=== PATIENT | male | born 1955 ===

== ENCOUNTER 2023-10-03 10:48 | Inpatient (IN) | payer OTHER ==
[~2023-10-03] VITALS: Ht 190.5 cm; Wt 110.5 kg
[2023-10-03 12:08] LABS: BASOPHILS % (AUTO) 0.9 % (0.0-2.0); EOSINOPHILS % (AUTO) 1.8 % (1.0-6.0); HEMATOCRIT 38.1 % (41-53); HEMOGLOBIN 12.6 g/dL (13.5-17.5); LYMPHOCYTES # (AUTO) 3.2 K/uL (1.0-4.8); LYMPHOCYTES % (AUTO) 38.9 % (22.0-44.0); MEAN CORPUSCULAR HEMOGLOBIN 25.8 pg (26.0-34.0); MEAN CORPUSCULAR VOLUME 78 fL (80-100); MONOCYTES # (AUTO) 0.9 K/uL (0.1-1.0); MONOCYTES % (AUTO) 10.7 % (2.0-9.0); NEUTROPHILS # (AUTO) 3.9 K/uL (1.8-7.7); NEUTROPHILS % (AUTO) 47.7 % (40.0-70.0); PLATELET COUNT (AUTO) 274 K/uL (150-450); RED BLOOD CELL COUNT(AUTO) 4.88 MIL/uL (4.50-5.90); RED CELL DISTRIBUTION WIDTH 18.3 % (11.5-14.5); WHITE BLOOD COUNT (AUTO) 8.1 K/uL (4.5-11.0)
[2023-10-03 12:18] LABS: ALBUMIN 3.3 g/dL (3.4-5.0); BILIRUBIN,TOTAL 0.9 mg/dL (0.1-1.0); CALCIUM, TOTAL 9.4 mg/dL (8.8-10.5); CREATININE 2.08 mg/dL (0.60-1.30)
[2023-10-03 12:24] LABS: POTASSIUM 2.2 mmol/L (3.5-5.1); TROPONIN I-HIGH SENSITIVITY 173 ng/L (<76)
[2023-10-03] MEDS ORDERED: ASPIRIN 325 MG TABLET PO ONE (12:45)
[2023-10-03] MEDS ORDERED: POTASSIUM CHL 10 MEQ/WATER 50 ML IV ONE (12:45)
[2023-10-03] MEDS ORDERED: POTASSIUM CHLORIDE 10% 40 MEQ/30 ML LIQUID UDCUP PO ONE ×2 (12:45→13:15)
[2023-10-03 12:53] LABS: COVID AG,FIA SOURCE NASAL SWAB
[2023-10-03 13:16] LABS: SARS-COV2 (COVID) ANTIGEN,FIA Negative (Negative)
[2023-10-03 15:17] LABS: APPEARANCE,URINE CLEAR (CLEAR); BILIRUBIN,URINE NEGATIVE (NEGATIVE); COLOR,URINE YELLOW (YELLOW); GLUCOSE, URINE (UA) NEGATIVE (NEGATIVE); KETONES,URINE NEGATIVE (NEGATIVE); LEUKOCYTE ESTERASE ,URINE SMALL (NEGATIVE); NITRATE,URINE NEGATIVE (NEGATIVE); OCCULT BLOOD,URINE NEGATIVE (NEGATIVE); PH,URINE 6.5 (5.0-8.0); PROTEIN,URINE 30-70 mg/dL (NEGATIVE); SPECIFIC GRAVITIY, URINE 1.013 (1.003-1.030); UROBILINOGEN,URINE <=1.0 mg/dL (<=1.0)
[2023-10-03 15:43] LABS: RBC,URINE None Seen /HPF (0-2)
[2023-10-03 15:44] LABS: BACTERIA,URINE Rare /HPF (None Seen)
[2023-10-03 16:13] VITALS: BP 171/99; PULSE 62; RESP 20; TEMP 98.2
[2023-10-03] MEDS ORDERED: IPRATROPIUM BROMIDE 0.5 MG/2.5 ML NEB SOLUTION NEB PRN (17:15)
[2023-10-03] MEDS ORDERED: ALBUTEROL SULFATE 2.5 MG/0.5 ML NEB SOLUTION NEB PRN (17:15)
[2023-10-03] MEDS ORDERED: ONDANSETRON HCL 4 MG/2 ML VIAL IVP PRN (17:15)
[2023-10-03] MEDS ORDERED: MORPHINE SULFATE 2 MG/ML SYRINGE IVP PRN (17:15)
[2023-10-03] MEDS ORDERED: BISACODYL 10 MG RECTAL RECTAL SUPPOSITORY PR PRN (17:15)
[2023-10-03] MEDS ORDERED: MAGNESIUM HYDROXIDE SUSPENSION 30 ML UDCUP PO PRN (17:15)
[2023-10-03 20:00] VITALS: BP 160/96; PULSE 52; RESP 20; TEMP 98
[2023-10-03] MEDS: ROPINIRole HCL 0.25 MG TABLET PO SCH (22:01)
[2023-10-03] MEDS: HEPARIN SODIUM,PORCINE 5,000 UNITS/ML VIAL SQ SCH (23:44)
[2023-10-03] MEDS: POTASSIUM CHLORIDE 20 MEQ ER TABLET PO SCH (23:45)
[2023-10-03] MEDS: ZOLPIDEM TARTRATE 5 MG TABLET PO PRN (23:45)
[2023-10-04] VITALS: BP 146/90; PULSE 52; RESP 19; TEMP 98.1
[2023-10-04 04:00] VITALS: BP 136/93; PULSE 55; RESP 18; TEMP 97.6
[2023-10-04] MEDS: LEVOTHYROXINE SODIUM 25 MCG TABLET PO SCH (06:24)
[2023-10-04 07:40] VITALS: BP 170/98; PULSE 65; RESP 18; TEMP 98
[2023-10-04 07:45] LABS: CALCIUM, TOTAL 8.6 mg/dL (8.8-10.5); CREATININE 1.88 mg/dL (0.60-1.30)
[2023-10-04 07:46] LABS: TROPONIN I-HIGH SENSITIVITY 130 ng/L (<76)
[2023-10-04] MEDS: POTASSIUM CHLORIDE 20 MEQ ER TABLET PO SCH ×2 (08:01→16:41)
[2023-10-04] MEDS: LISINOPRIL 20 MG TABLET PO SCH (08:01)
[2023-10-04] MEDS: HEPARIN SODIUM,PORCINE 5,000 UNITS/ML VIAL SQ SCH ×3 (08:01→23:55)
[2023-10-04] MEDS: TAMSULOSIN HCL 0.4 MG CAPSULE PO SCH (08:01)
[2023-10-04] MEDS: PANTOPRAZOLE SODIUM 40 MG DR TABLET PO SCH (08:01)
[2023-10-04] MEDS ORDERED: POTASSIUM CHLORIDE 20 MEQ ER TABLET PO ONE ×2 (10:00→15:15)
[2023-10-04 13:48] LABS: CALCIUM, TOTAL 8.6 mg/dL (8.8-10.5); CREATININE 1.92 mg/dL (0.60-1.30); PHOSPHORUS 2.5 mg/dL (2.5-4.9)
[2023-10-04 13:55] LABS: POTASSIUM 2.3 mmol/L (3.5-5.1)
[2023-10-04 16:24] VITALS: BP 149/91; PULSE 52; RESP 18; TEMP 98
[2023-10-04] MEDS: LOPERAMIDE HCL 2 MG CAPSULE PO PRN (16:41)
[2023-10-04 19:38] VITALS: BP 136/84; PULSE 54; RESP 18; TEMP 97.9
[2023-10-04] MEDS: ROPINIRole HCL 0.25 MG TABLET PO SCH (20:59)
[2023-10-04] MEDS: ZOLPIDEM TARTRATE 5 MG TABLET PO PRN (23:55)
[2023-10-05] MEDS: POTASSIUM CHLORIDE 20 MEQ ER TABLET PO SCH ×4 (00:04→23:33)
[2023-10-05 01:00] VITALS: BP 159/96; PULSE 52; RESP 18; TEMP 97.8
[2023-10-05 04:24] VITALS: BP 156/96; PULSE 53; RESP 19; TEMP 98.1
[2023-10-05 04:51] LABS: CREATININE,URINE RANDOM 13.8 mg/dL (30.0-125.0)
[2023-10-05] MEDS: LEVOTHYROXINE SODIUM 25 MCG TABLET PO SCH (06:52)
[2023-10-05 07:20] LABS: THYROID STIMULATING HORMONE 6.54 uIU/mL (0.36-3.74)
[2023-10-05 07:26] VITALS: BP 145/95; PULSE 50; RESP 18; TEMP 97.5
[2023-10-05 08:43] LABS: CALCIUM, TOTAL 8.7 mg/dL (8.8-10.5); CREATININE 1.42 mg/dL (0.60-1.30); MAGNESIUM 1.9 mg/dL (1.80-2.40); PHOSPHORUS 2.7 mg/dL (2.5-4.9)
[2023-10-05 08:45] LABS: POTASSIUM 2.3 mmol/L (3.5-5.1)
[2023-10-05] MEDS: TAMSULOSIN HCL 0.4 MG CAPSULE PO SCH (08:55)
[2023-10-05] MEDS: LISINOPRIL 20 MG TABLET PO SCH (08:55)
[2023-10-05] MEDS: PANTOPRAZOLE SODIUM 40 MG DR TABLET PO SCH (08:55)
[2023-10-05] MEDS: HEPARIN SODIUM,PORCINE 5,000 UNITS/ML VIAL SQ SCH ×3 (08:55→23:34)
[2023-10-05 12:00] VITALS: BP 148/90; PULSE 51; RESP 18; TEMP 98.2
[2023-10-05] MEDS ORDERED: SODIUM CHLORIDE 0.9% 250 ML IV ONE (12:08)
[2023-10-05] MEDS: SPIRONOLACTONE 25 MG TABLET PO SCH (12:28)
[2023-10-05] MEDS: POTASSIUM CHL 10 MEQ/WATER 50 ML IV SCH ×3 (12:29→16:54)
[2023-10-05 16:03] VITALS: BP 140/96; PULSE 56; RESP 18; TEMP 98
[2023-10-05 20:00] VITALS: BP 137/78; PULSE 57; RESP 18; TEMP 98.2
[2023-10-05 20:08] LABS: PH,URINE DRUG SCREEN 7.5 (5.0-8.0)
[2023-10-05 21:00] LABS: ALCOHOL, URINE DRUG SCREEN NEGATIVE (NEGATIVE); AMPHET/METH SCREEN,URINE NEGATIVE (NEGATIVE); BARBITURATE SCREEN, URINE NEGATIVE (NEGATIVE); BENZODIAZEPINES SCREEN,URINE NEGATIVE (NEGATIVE); CANNABINOID SCREEN,URINE NEGATIVE (NEGATIVE); COCAINE SCREEN,URINE NEGATIVE (NEGATIVE); METHADONE SCREEN, URINE NEGATIVE (NEGATIVE); OPIATE SCREEN,URINE NEGATIVE (NEGATIVE); PHENCYCLIDINE SCREEN,URINE NEGATIVE (NEGATIVE)
[2023-10-05] MEDS ORDERED: [UNRECOGNIZED DRUG - OTHER] IV ONE (21:15)
[2023-10-05] MEDS ORDERED: POTASSIUM CHL IV ONE (21:15)
[2023-10-05] MEDS: ROPINIRole HCL 0.25 MG TABLET PO SCH (21:29)
[2023-10-05] MEDS ORDERED: SODIUM CHLORIDE 0.45% IV SCH (21:30)
[2023-10-05] MEDS ORDERED: POTASSIUM CHLORIDE IV SCH (21:30)
[2023-10-05] MEDS: ZOLPIDEM TARTRATE 5 MG TABLET PO PRN (21:30)
[2023-10-06] VITALS: BP 155/93; PULSE 60; RESP 18; TEMP 98.1
[2023-10-06 04:00] VITALS: BP 160/98; PULSE 62; RESP 18; TEMP 98
[2023-10-06] MEDS: LEVOTHYROXINE SODIUM 25 MCG TABLET PO SCH (05:50)
[2023-10-06 07:19] LABS: CALCIUM, TOTAL 8.5 mg/dL (8.8-10.5); CREATININE 1.24 mg/dL (0.60-1.30); MAGNESIUM 1.9 mg/dL (1.80-2.40); PHOSPHORUS 2.7 mg/dL (2.5-4.9)
[2023-10-06 07:26] LABS: POTASSIUM 2.5 mmol/L (3.5-5.1)
[2023-10-06] MEDS ORDERED: POTASSIUM CHLORIDE 20 MEQ ER TABLET PO ONE (08:00)
[2023-10-06] MEDS: PANTOPRAZOLE SODIUM 40 MG DR TABLET PO SCH (08:31)
[2023-10-06] MEDS: TAMSULOSIN HCL 0.4 MG CAPSULE PO SCH (08:32)
[2023-10-06] MEDS: POTASSIUM CHLORIDE 20 MEQ ER TABLET PO SCH ×3 (08:32→23:24)
[2023-10-06] MEDS: HEPARIN SODIUM,PORCINE 5,000 UNITS/ML VIAL SQ SCH ×3 (08:32→23:24)
[2023-10-06] MEDS: SPIRONOLACTONE 25 MG TABLET PO SCH (08:32)
[2023-10-06 08:39] VITALS: BP 157/107; PULSE 68; RESP 18; TEMP 97.6
[2023-10-06] MEDS: LISINOPRIL 20 MG TABLET PO SCH (08:44)
[2023-10-06] MEDS: POTASSIUM CHL 10 MEQ/WATER 50 ML IV SCH ×3 (09:37→11:20)
[2023-10-06 09:45] VITALS: BP 111/77
[2023-10-06 11:46] VITALS: BP 143/97; PULSE 59; RESP 18; TEMP 98
[2023-10-06 19:45] VITALS: BP 146/92; PULSE 63; RESP 20; TEMP 97.7
[2023-10-06] MEDS: ZOLPIDEM TARTRATE 5 MG TABLET PO PRN (20:09)
[2023-10-06] MEDS: ROPINIRole HCL 0.25 MG TABLET PO SCH (20:09)
[2023-10-07] VITALS (7 sets, daily range): BP systolic 129–164; BP diastolic 76–103; PULSE 56–64; RESP 16–19; TEMP 97.6–98.7
[2023-10-07] MEDS: LEVOTHYROXINE SODIUM 25 MCG TABLET PO SCH (05:32)
[2023-10-07 07:13] LABS: CALCIUM, TOTAL 8.2 mg/dL (8.8-10.5); CREATININE 1.32 mg/dL (0.60-1.30); POTASSIUM 3.1 mmol/L (3.5-5.1)
[2023-10-07 07:26] LABS: MAGNESIUM 1.9 mg/dL (1.80-2.40); PHOSPHORUS 2.6 mg/dL (2.5-4.9)
[2023-10-07] MEDS ORDERED: POTASSIUM CHLORIDE 20 MEQ ER TABLET PO ONE (08:15)
[2023-10-07] MEDS ORDERED: PEG 400/HYPROMELLOSE/GLYCERIN 15 ML OPHTHALMIC SOLUTION OU PRN (08:15)
[2023-10-07] MEDS: POTASSIUM CHLORIDE 20 MEQ ER TABLET PO SCH ×2 (08:43→16:11)
[2023-10-07] MEDS: LISINOPRIL 20 MG TABLET PO SCH (08:45)
[2023-10-07] MEDS: CARVEDILOL 3.125 MG TABLET PO SCH (08:45)
[2023-10-07] MEDS: TAMSULOSIN HCL 0.4 MG CAPSULE PO SCH (08:45)
[2023-10-07] MEDS: SPIRONOLACTONE 25 MG TABLET PO SCH (08:45)
[2023-10-07] MEDS: HEPARIN SODIUM,PORCINE 5,000 UNITS/ML VIAL SQ SCH ×2 (08:45→16:12)
[2023-10-07] MEDS: PANTOPRAZOLE SODIUM 40 MG DR TABLET PO SCH (08:45)
[2023-10-07] MEDS: POTASSIUM CHL 10 MEQ/WATER 50 ML IV SCH ×2 (10:17→11:03)
[2023-10-07] MEDS ORDERED: POTASSIUM CHLORIDE 20 MEQ ER TABLET PO SCH (16:00)
[2023-10-07] MEDS: ROPINIRole HCL 0.25 MG TABLET PO SCH (21:06)
[2023-10-07] MEDS: HydrALAZINE HCL 20 MG/ML VIAL IVP PRN (22:52)
[2023-10-07] MEDS: ZOLPIDEM TARTRATE 5 MG TABLET PO PRN (22:55)
[2023-10-08] VITALS: BP 149/99; PULSE 63; RESP 17; TEMP 98
[2023-10-08] MEDS: POTASSIUM CHLORIDE 20 MEQ ER TABLET PO SCH ×4 (00:30→23:38)
[2023-10-08] MEDS: HEPARIN SODIUM,PORCINE 5,000 UNITS/ML VIAL SQ SCH ×4 (00:31→23:38)
[2023-10-08] MEDS: HYDROCODONE/ACETAMINOPHEN 5-325 MG TABLET PO PRN ×4 (03:48→17:33)
[2023-10-08 04:00] VITALS: BP 147/97; PULSE 65; RESP 18; TEMP 97.8
[2023-10-08] MEDS ORDERED: DiphenhydrAMINE HCL 25 MG CAPSULE PO ONE (04:15)
[2023-10-08] MEDS: LEVOTHYROXINE SODIUM 25 MCG TABLET PO SCH (06:14)
[2023-10-08 07:44] VITALS: BP 148/103; PULSE 60; RESP 18; TEMP 97.6
[2023-10-08] MEDS: LISINOPRIL 20 MG TABLET PO SCH (07:49)
[2023-10-08] MEDS: CARVEDILOL 3.125 MG TABLET PO SCH (07:49)
[2023-10-08] MEDS: SPIRONOLACTONE 25 MG TABLET PO SCH (07:49)
[2023-10-08] MEDS: TAMSULOSIN HCL 0.4 MG CAPSULE PO SCH (07:50)
[2023-10-08] MEDS: PANTOPRAZOLE SODIUM 40 MG DR TABLET PO SCH (07:50)
[2023-10-08 08:10] LABS: CREATININE 1.24 mg/dL (0.60-1.30); POTASSIUM 4.7 mmol/L (3.5-5.1)
[2023-10-08 08:20] LABS: MAGNESIUM 1.9 mg/dL (1.80-2.40); PHOSPHORUS 2.4 mg/dL (2.5-4.9)
[2023-10-08 12:00] VITALS: BP 148/102; PULSE 63; RESP 20; TEMP 97.7
[2023-10-08] MEDS: DiphenhydrAMINE HCL 25 MG CAPSULE PO PRN ×2 (12:07→23:38)
[2023-10-08 16:00] VITALS: BP 151/100; PULSE 57; RESP 19; TEMP 97.8
[2023-10-08] MEDS: OFLOXACIN 0.3% 5 ML OPHTHALMIC SOLUTION OU SCH ×2 (17:31→20:53)
[2023-10-08 20:00] VITALS: BP 146/100; PULSE 66; RESP 18; TEMP 97.6
[2023-10-08] MEDS: ACETAMINOPHEN 325 MG TABLET PO PRN (20:53)
[2023-10-08] MEDS: ROPINIRole HCL 0.25 MG TABLET PO SCH (20:53)
[2023-10-09] VITALS (7 sets, daily range): BP systolic 130–160; BP diastolic 91–101; PULSE 64–80; RESP 18–20; TEMP 97.6–98.1
[2023-10-09] MEDS: LOPERAMIDE HCL 2 MG CAPSULE PO PRN (02:38)
[2023-10-09] MEDS: HYDROCODONE/ACETAMINOPHEN 5-325 MG TABLET PO PRN ×2 (02:39→23:48)
[2023-10-09] MEDS: HydrALAZINE HCL 20 MG/ML VIAL IVP PRN (04:00)
[2023-10-09] MEDS: LEVOTHYROXINE SODIUM 25 MCG TABLET PO SCH (05:37)
[2023-10-09 07:48] LABS: CALCIUM, TOTAL 9.5 mg/dL (8.8-10.5); CREATININE 1.39 mg/dL (0.60-1.30); POTASSIUM 5.6 mmol/L (3.5-5.1)
[2023-10-09] MEDS: POTASSIUM CHLORIDE 20 MEQ ER TABLET PO SCH ×2 (08:00→16:00)
[2023-10-09] MEDS: HEPARIN SODIUM,PORCINE 5,000 UNITS/ML VIAL SQ SCH ×3 (08:40→23:48)
[2023-10-09] MEDS: OFLOXACIN 0.3% 5 ML OPHTHALMIC SOLUTION OU SCH ×3 (08:41→20:26)
[2023-10-09] MEDS: PANTOPRAZOLE SODIUM 40 MG DR TABLET PO SCH (08:41)
[2023-10-09] MEDS: TAMSULOSIN HCL 0.4 MG CAPSULE PO SCH (08:41)
[2023-10-09] MEDS: CARVEDILOL 3.125 MG TABLET PO SCH (08:41)
[2023-10-09] MEDS: LISINOPRIL 20 MG TABLET PO SCH (08:42)
[2023-10-09] MEDS: SPIRONOLACTONE 25 MG TABLET PO SCH (08:42)
[2023-10-09] MEDS ORDERED: PNEUMOCOCCAL VACCINE POLYVALENT 0.5 ML SYRINGE [PPSV23] IM. ONE (18:45)
[2023-10-09] MEDS ORDERED: INFLUENZA VIRUS VACCINE QVS 2023-24 (6MO+)/PF 60 MCG/0.5 ML SYRINGE IM. ONE (18:45)
[2023-10-09] MEDS: ROPINIRole HCL 0.25 MG TABLET PO SCH (20:26)
[2023-10-10 04:51] VITALS: BP 143/105; PULSE 62; RESP 20; TEMP 97.7
[2023-10-10] MEDS: LEVOTHYROXINE SODIUM 25 MCG TABLET PO SCH (06:00)
[2023-10-10 07:32] LABS: CALCIUM, TOTAL 9.1 mg/dL (8.8-10.5); CREATININE 1.89 mg/dL (0.60-1.30); POTASSIUM 4.9 mmol/L (3.5-5.1)
[2023-10-10] MEDS: POTASSIUM CHLORIDE 20 MEQ ER TABLET PO SCH ×3 (08:00→15:48)
[2023-10-10 08:29] VITALS: BP 148/96; PULSE 63; RESP 18; TEMP 97.8
[2023-10-10] MEDS: OFLOXACIN 0.3% 5 ML OPHTHALMIC SOLUTION OU SCH ×3 (09:14→20:30)
[2023-10-10] MEDS: HEPARIN SODIUM,PORCINE 5,000 UNITS/ML VIAL SQ SCH ×2 (09:14→15:48)
[2023-10-10] MEDS: SPIRONOLACTONE 25 MG TABLET PO SCH (09:14)
[2023-10-10] MEDS: PANTOPRAZOLE SODIUM 40 MG DR TABLET PO SCH (09:15)
[2023-10-10] MEDS: TAMSULOSIN HCL 0.4 MG CAPSULE PO SCH (09:15)
[2023-10-10] MEDS: LISINOPRIL 20 MG TABLET PO SCH (09:15)
[2023-10-10] MEDS: CARVEDILOL 3.125 MG TABLET PO SCH (09:15)
[2023-10-10 15:37] VITALS: BP 128/73; PULSE 62; RESP 18; TEMP 97.5
[2023-10-10] MEDS: ACETAMINOPHEN 325 MG TABLET PO PRN (18:19)
[2023-10-10 20:18] VITALS: BP 112/78; PULSE 65; RESP 20; TEMP 97.7
[2023-10-10] MEDS: ROPINIRole HCL 0.25 MG TABLET PO SCH (20:30)
[2023-10-11] MEDS: HEPARIN SODIUM,PORCINE 5,000 UNITS/ML VIAL SQ SCH ×4 (00:33→23:21)
[2023-10-11 04:49] VITALS: BP 138/82; PULSE 61; RESP 18; TEMP 97.5
[2023-10-11] MEDS: LEVOTHYROXINE SODIUM 25 MCG TABLET PO SCH (06:01)
[2023-10-11 07:06] LABS: CALCIUM, TOTAL 8.8 mg/dL (8.8-10.5); CREATININE 1.89 mg/dL (0.60-1.30); POTASSIUM 4.5 mmol/L (3.5-5.1)
[2023-10-11] MEDS: POTASSIUM CHLORIDE 20 MEQ ER TABLET PO SCH ×4 (08:00→23:29)
[2023-10-11 08:18] VITALS: BP 132/84; PULSE 65; RESP 18; TEMP 97.9
[2023-10-11] MEDS: LISINOPRIL 20 MG TABLET PO SCH (08:43)
[2023-10-11] MEDS: OFLOXACIN 0.3% 5 ML OPHTHALMIC SOLUTION OU SCH ×3 (08:43→21:44)
[2023-10-11] MEDS: TAMSULOSIN HCL 0.4 MG CAPSULE PO SCH (08:44)
[2023-10-11] MEDS: PANTOPRAZOLE SODIUM 40 MG DR TABLET PO SCH (08:44)
[2023-10-11] MEDS: CARVEDILOL 3.125 MG TABLET PO SCH (08:44)
[2023-10-11] MEDS: ALPRAZolam 0.5 MG TABLET PO PRN (13:44)
[2023-10-11 13:46] VITALS: BP 115/77; PULSE 67; RESP 18
[2023-10-11] MEDS: SPIRONOLACTONE 25 MG TABLET PO SCH (13:46)
[2023-10-11 16:19] VITALS: BP 151/99; PULSE 61; RESP 18; TEMP 98.1
[2023-10-11 19:42] VITALS: BP 114/81; PULSE 67; RESP 19; TEMP 97.6
[2023-10-11] MEDS: ROPINIRole HCL 0.25 MG TABLET PO SCH (21:44)
[2023-10-12 04:30] VITALS: BP 136/98; PULSE 58; RESP 18; TEMP 97.7
[2023-10-12] MEDS: LEVOTHYROXINE SODIUM 25 MCG TABLET PO SCH (06:01)
[2023-10-12 07:41] LABS: CREATININE 1.76 mg/dL (0.60-1.30); POTASSIUM 4.2 mmol/L (3.5-5.1)
[2023-10-12 07:42] LABS: CALCIUM, TOTAL 8.6 mg/dL (8.8-10.5)
[2023-10-12] MEDS: POTASSIUM CHLORIDE 20 MEQ ER TABLET PO SCH ×2 (08:00→16:00)
[2023-10-12 08:13] VITALS: BP 138/84; PULSE 57; RESP 19; TEMP 97.8
[2023-10-12] MEDS: PANTOPRAZOLE SODIUM 40 MG DR TABLET PO SCH (08:14)
[2023-10-12] MEDS: SPIRONOLACTONE 25 MG TABLET PO SCH (08:14)
[2023-10-12] MEDS: HEPARIN SODIUM,PORCINE 5,000 UNITS/ML VIAL SQ SCH ×2 (08:14→16:15)
[2023-10-12] MEDS: LISINOPRIL 20 MG TABLET PO SCH (08:14)
[2023-10-12] MEDS: TAMSULOSIN HCL 0.4 MG CAPSULE PO SCH (08:14)
[2023-10-12] MEDS: OFLOXACIN 0.3% 5 ML OPHTHALMIC SOLUTION OU SCH ×2 (08:15→16:15)
[2023-10-12] MEDS: CARVEDILOL 3.125 MG TABLET PO SCH (08:16)
[2023-10-12] MEDS: ALPRAZolam 0.5 MG TABLET PO PRN (08:36)
[2023-10-12] MEDS ORDERED: LEVO25TA9 PO (12:53)
[2023-10-12] MEDS ORDERED: CARV3 PO (12:53)
[2023-10-12] MEDS ORDERED: LISI-894 PO (12:53)
[2023-10-12] MEDS ORDERED: OFLO5DRO49 OU (12:58)
[2023-10-12] MEDS ORDERED: POTA-206 PO ×2 (13:01→13:04)
[2023-10-12] MEDS ORDERED: SPIR-37 PO (13:02)
[2023-10-12] MEDS ORDERED: ROPI0.2535 PO (13:02)
[2023-10-12] MEDS ORDERED: TAMS0.4C94 PO (13:04)
[2023-10-12 19:44] VITALS: BP 117/76; PULSE 72; RESP 18; TEMP 97.9
== END 2023-10-12 20:15 | DRG 641 ==
LOC: EMS 10:50 → 5S 13:30 → 6S 10-09 17:20
PROVIDERS: ADMIT Hospitalist; ATTEND Hospitalist
DX: E87.6 Hypokalemia (principal); N17.9 Acute kidney failure, unspecified; I13.0 Hypertensive heart and chronic kidney disease with heart failure and stage 1 through stage 4 chronic kidney disease, or unspecified chronic kidney disease; E26.9 Hyperaldosteronism, unspecified; E03.9 Hypothyroidism, unspecified; N40.0 Benign prostatic hyperplasia without lower urinary tract symptoms; F32.A Depression, unspecified; G25.81 Restless legs syndrome; I50.9 Heart failure, unspecified; N18.9 Chronic kidney disease, unspecified; R19.7 Diarrhea, unspecified; F41.9 Anxiety disorder, unspecified; R79.89 Other specified abnormal findings of blood chemistry; E87.3 Alkalosis; Z20.822 Contact with and (suspected) exposure to COVID-19
CPT/HCPCS: 71045; 76770; 80048; 80053; 80307; 81001; 82533; 82570; 83735; 83880; 84100; 84132; 84133; 84443; 84484; 85025; 87086; 87186; 93005; 93306; 99291; J0360; J1644; J2405; J3480; J7050; 36415-L1; 36415-TC